=== PATIENT | female | born 1980 | race Caucasian/White ===

== ENCOUNTER 2016-10-09 09:20 | Day surgery (SDC) | payer BC ==
[~2016-10-09 09:20] MED LIST: Lactated Ringers 1,000 ML IV SCH; Lidocaine 2% 5 ML SDV ONE; Midazolam 1 MG/ML 2 ML SDV ONE; Propofol 200 MG/20 ML SDV ONE; Rocuronium 10 MG/ML 10 ML Syringe ONE; Succinylcholine/Normal Saline 200 MG/10 ML Syringe ONE; ceFAZolin 2 GM in Premix Bag 1 BAG IV ONE; fentaNYL 100 MCG/2 ML SDV ONE
--- NOTE | 2016-10-09 09:57 | PCM.PREANE ---
Preanesthetic Assessment - Anesthesia/Transfusion/Family Hx Anesthesia History: Prior Anesthesia Without Reaction Family History of Anesthesia Reaction: No Transfusion History: No Prior Transfusion(s) - Review of Systems General: No Symptoms Pulmonary: No Symptoms Cardiovascular: No Symptoms Gastrointestinal: Abdominal pain Neurological: No Symptoms Other: Reports: None - Physical Assessment O2 Sat by Pulse Oximetry: 100 Vital Signs: Last Vital Signs Temp 36.6 C 10/09/16 09:38 Pulse 84 10/09/16 09:38 Resp BP 127/85 10/09/16 09:38 Pulse Ox 100 10/09/16 09:38 Height: 1.68 m Weight: 84.368 kg ASA Class: 2 Mental Status: Alert & Oriented x3 Airway Class: Mallampati = 3 Dentition: Reports: Normal Dentition Thyro-Mental Finger Breadths: 2 Mouth Opening Finger Breadths: 2 ROM/Head Extension: Full Lungs: Clear to auscultation, Normal respiratory effort Cardiovascular: Regular Rate, Regular Rhythm, No Murmurs - Lab Values: Laboratory Last Values WBC 6.59 K/uL (4.0-11.0) 10/09/16 09:35 RBC 4.85 M/uL (4.30-5.90) 10/09/16 09:35 Hgb 15.3 g/dL (12.0-16.0) 10/09/16 09:35 Hct 46.5 % (36.0-46.0) H 10/09/16 09:35 MCV 95.9 fL (80.0-98.0) 10/09/16 09:35 MCH 31.5 pg (27.0-32.0) 10/09/16 09:35 MCHC 32.9 g/dL (31.0-37.0) 10/09/16 09:35 RDW Std Deviation 44.2 fl (28.0-62.0) 10/09/16 09:35 RDW Coeff of Jacobo 13 % (11.0-15.0) 10/09/16 09:35 Plt Count 234 K/uL (150-400) 10/09/16 09:35 MPV 10.70 fL (7.40-12.00) 10/09/16 09:35 Nucleated RBC % 0.0 /100WBC 10/09/16 09:35 Nucleated RBCs # 0 K/uL 10/09/16 09:35 - Allergies Allergies/Adverse Reactions: Allergies Allergy/AdvReac Type Severity Reaction Status Date / Time adhesive tape Allergy Rash Verified 09/15/16 12:05 - Blood Blood Available: No - Anesthesia Plan Pre-Op Medication Ordered: None - Acknowledgements Anesthesia Type Planned: General Anesthesia Pt an Appropriate Candidate for the Planned Anesthesia: Yes Alternatives and Risks of Anesthesia Discussed w Pt/Guardian: Yes Pt/Guardian Understands and Agrees with Anesthesia Plan: Yes PreAnesthesia Questionnaire Other HEENT History: wears glasses/contacts Cardiovascular History: Reports: None Respiratory History: Reports: Sleep apnea Other Respiratory History: was diagnosed prior to weight loss, states no issues now Gastrointestinal History: Reports: None Genitourinary History: Reports: None ON AWAKE COUNSELOR History: Reports: Other (see below) Other OB/BYN History: hx of ovarian cysts Musculoskeletal History: Reports: None Neurological History: Reports: None Psychiatric History: Reports: Anxiety, Depression Endocrine/Metabolic History: Reports: Obesity/BMI 30+ Hematologic History: Reports: None Immunologic History: Reports: None Oncologic (Cancer) History: Reports: None Dermatologic History: Reports: None - Past Surgical History Head Surgeries/Procedures: Reports: None HEENT Surgical History: Reports: Adenoidectomy, Oral surgery, Tonsillectomy Cardiovascular Surgical History: Reports: None Respiratory Surgical History: Reports: None GI Surgical History: Reports: Bariatric procedure Female Surgical History: Reports: Breast biopsy, Other (see below) Other Female Surgeries/Procedures: Laparoscopy for ovarian cyst 15 years ago and cervical bx Endocrine Surgical History: Reports: None Neurological Surgical History: Reports: None Musculoskeletal Surgical History: Reports: Arthroscopic knee Oncologic Surgical History: Reports: Biopsy of breast (needle loc) - SUBSTANCE USE Smoking Status *Q: Former Smoker (quit 13 years ago) Tobacco Use Within Last Twelve Months: No Recreational Drug Use History: No - HOME MEDS Home Medications: Home Meds Cyanocobalamin (Vitamin B-12) [Vitamin B-12] 1,000 mcg IM ASDIRECTED 09/15/16 [ History] DULoxetine [Cymbalta] 60 mg PO DAILY 09/15/16 [History] Norgestimate-Ethinyl Estradiol [Previfem Tablet] 1 tab PO DAILY 09/15/16 [ History] Zolpidem [Ambien] 5 mg PO BEDTIME 09/15/16 [History] - CURRENT (IN HOUSE) MEDS Current Meds: Current Medications Lactated Ringer's (Ringers, Lactated) 1,000 mls @ 125 mls/hr IV ASDIRECTED LAINE Last Admin: 10/09/16 09:40 Dose: 125 mls/hr Discontinued Medications Fentanyl (Sublimaze) Confirm Administered Dose 100 mcg .ROUTE .STK-MED ONE Stop: 10/09/16 08:08 Lidocaine (Xylocaine-Mpf 2%) Confirm Administered Dose 5 ml .ROUTE .STK-MED ONE Stop: 10/09/16 08:07 Midazolam HCl (Versed 1 Mg/Ml) Confirm Administered Dose 2 mg .ROUTE .STK-MED ONE Stop: 10/09/16 08:08 Propofol (Diprivan 20 Ml) Confirm Administered Dose 200 mg .ROUTE .STK-MED ONE Stop: 10/09/16 08:08 Rocuronium Warner (Zemuron) Confirm Administered Dose 100 mg .ROUTE .STK-MED ONE Stop: 10/09/16 08:07 Succinylcholine Chloride (Succinylcholine In Ns Pf) Confirm Administered Dose 200 mg .ROUTE .STK-MED ONE Stop: 10/09/16 08:07
[2016-10-09] MEDS ORDERED: Bupivacaine 0.25% 10 ML SDV ONE (10:59)
[2016-10-09] MEDS ORDERED: Neostigmine Methylsulfate 1 MG/ML 5 ML Syringe ONE (11:40)
[2016-10-09] MEDS ORDERED: Ketorolac 30 MG/ML SDV ONE (11:40)
[2016-10-09] MEDS ORDERED: Ondansetron 4 MG/2 ML SDV ONE (11:40)
[2016-10-09] MEDS ORDERED: HYDROmorphone 2 MG/ML Syringe IVPUSH PRN (11:43)
--- NOTE | 2016-10-09 11:58 | PCM.OPNOTE ---
- General Post-Op/Procedure Note Date of Surgery/Procedure: 10/09/16 Operative Procedure(s): laparoscopic left salpingectomy Pre Op Diagnosis: recent ectopic , left lower quadrant pain, hematosalpinx Post-Op Diagnosis: Same Anesthesia Technique: General ET tube Primary Surgeon: Rita Hassan Anesthesia Provider: Hillary Zavala Pathology: left fallopian tube Fluid Replacement, Intraop: 1,100 EBL in mLs: 10 Complications: None Known Condition: Good
[2016-10-09] MEDS: fentaNYL 100 MCG/2 ML SDV IVPUSH PRN ×2 (12:07→12:13)
[2016-10-09 14:28] VITALS: BP 107/70
--- NOTE | 2016-10-09 14:33 | OR ---
SURGEON: Rita Hassan M.D. DATE OF PROCEDURE: 10/09/2016 PREOPERATIVE DIAGNOSES: Left lower quadrant pain, hematosalpinx. POSTOPERATIVE DIAGNOSES: Left lower quadrant pain, hematosalpinx. PROCEDURE: Laparoscopic left salpingectomy. ANESTHESIA: General endotracheal. FLUIDS: 1100 mL crystalloid. ESTIMATED BLOOD LOSS: 10 mL. FINDINGS: The uterus is anteverted, sounds to 7 cm. On laparoscopic evaluation, the uterus, right tube and ovary appeared normal. The left ovary appears normal. The left tube is markedly dilated in the mid segment extending approximately 3 cm in length and 1.5 cm to 2 cm in width. The liver and gallbladder appeared normal. COMPLICATIONS: None known. DISPOSITION: Stable to recovery. BRIEF HISTORY: This is a 35-year-old female, who was monitored for a resolving ectopic . When she presented, she was unaware of the . Her hCG continued to follow appropriately with a known finding of a hematosalpinx on the left side. Her hCG progressed to being negative, however, her pain persisted as did the hematosalpinx and now after monitoring for several months with persistence of the pain and the hematosalpinx, she desires to proceed with a laparoscopic left salpingectomy and surgery is indicated for left lower quadrant pain. Risks were reviewed including bleeding, infection, injury to bowel, bladder, blood vessels, or other organs, risk of thromboembolic event, risk of anesthesia. Understanding all these risks, she does desire to proceed. DESCRIPTION OF PROCEDURE: With the patient in the dorsal lithotomy position, under adequate general endotracheal anesthesia, the speculum was placed in the vagina after a bimanual examination revealed an anteverted 8-week size uterus. Allis clamp was utilized to grasp the anterior cervix and the cervix accepted the ZUMI uterine manipulator. The balloon was inflated with air. The speculum was removed. Lab Nurse's gloves were changed. Attention was turned abdominally where 2 mL of 0.25% Marcaine were injected inferior to the umbilicus. A vertical 5 mm incision was made with a scalpel. The anterior abdominal wall was elevated. Veress needle was inserted. Opening pressure was 4 mmHg. CO2 was insufflated to develop an adequate pneumoperitoneum of 13 mmHg. The 5 mm port was then placed in the inferior umbilical position. Laparoscope was placed into the abdominal cavity. There was no evidence of any trauma beneath the port placement site. The uterus was elevated. The patient was placed in Trendelenburg position. Bilateral tubes and ovaries were inspected with normal right adnexa, however, with the obvious large dilatation on the left tube, there were no adhesions. No evidence of endometriosis and no other abnormal findings on laparoscopic evaluation of the pelvis two additional ports were then placed under direct visualization on the right lower quadrant 2 cm medial and cephalad from the anterior superior iliac spine. After placing Marcaine, a 5 mm incision was made and a 5 mm laparoscope port was placed. This was repeated on the left side with a 10, 12 port being placed. This being completed, the tube was grasped with the fimbria. The mesial salpinx was incised using the Harmonic Scalpel starting distally and proceeding proximally to the cornea where it was transected. An EndoCatch bag was placed through the 10, 12 port and the tube was placed in the bag. The tube was removed. The abdomen was desufflated to 4 mmHg. There was no evidence of any bleeding. Therefore, the abdomen was completely desufflated. The ports were removed. The left lower quadrant port site was closed using a deep [id number] suture in the fascia of 0 Polysorb followed by subcuticular suture of 3-0 Caprosyn for the skin on all three incisions. The ZUMI uterine manipulator was removed from the cervix. Final sponge, needle, and instrument counts were reported as correct. There were no known complications. The patient was transferred to recovery in good condition. ANH ZUNIGA /[id number]
== END 2016-10-09 14:15 | disposition home or self-care (01) ==
LOC: MW.SDS 09:20
PROVIDERS: ATTEND Obstetrics & Gynecology
PROC: 10T24ZZ Resection of Products of Conception, Ectopic, Percutaneous Endoscopic Approach (ICD-10-PCS; principal; 2016-10-09)
PROC: 0UT64ZZ Resection of Left Fallopian Tube, Percutaneous Endoscopic Approach (ICD-10-PCS; 2016-10-09)
DX: O00.10 Tubal pregnancy without intrauterine pregnancy (principal); F32.9 Major depressive disorder, single episode, unspecified; F41.9 Anxiety disorder, unspecified; G47.30 Sleep apnea, unspecified; E66.9 Obesity, unspecified; Z87.891 Personal history of nicotine dependence; Z90.89 Acquired absence of other organs; Z98.890 Other specified postprocedural states; Z79.899 Other long term (current) drug therapy; Z91.048 Other nonmedicinal substance allergy status; Z68.30 Body mass index [BMI] 30.0-30.9, adult
CPT/HCPCS: 36415; 59151; 84703; 85027; J0690; J1885; J2250; J2405; J3010; J7120; 00840; 88305; J2704

== ENCOUNTER 2025-04-10 14:51 | Emergency (ER) | payer BC ==
[2025-04-10 15:18] LABS: APPEARANCE,URINE CLEAR; GLUCOSE,URINE 250 mg/dL (NEGATIVE); OCCULT BLOOD,URINE NEGATIVE (NEGATIVE)
[2025-04-10 16:21] LABS: BASOPHILS ABSOLUTE AUTO 0.04 K/uL (0.00-0.20); BASOPHILS PERCENT AUTO 0.6 % (0.0-1.0); EOSINOPHILS ABSOLUTE AUTO 0.12 K/uL (0.00-0.45); EOSINOPHILS PERCENT AUTO 1.8 % (0.0-6.0); IMMATURE GRAN ABSOLUTE AUTO 0.01 K/uL (0.00-0.05); IMMATURE GRAN PERCENT AUTO 0.1 % (0.0-0.4); LYMPHOCYTES ABSOLUTE AUTO 1.24 K/uL (1.00-4.80); LYMPHOCYTES PERCENT AUTO 18.5 % (24.0-44.0); MEAN PLATELET VOLUME 9.2 fL (9.4-12.3); MONOCYTES ABSOLUTE AUTO 0.68 K/uL (0.00-0.80); MONOCYTES PERCENT AUTO 10.1 % (0.0-8.0); NEUTROPHILS ABSOLUTE AUTO 4.63 K/uL (1.80-7.70); NEUTROPHILS PERCENT AUTO 68.9 % (41.0-71.0); NRBC ABSOLUTE 0.00 K/uL (0.00-0.02); NRBC PERCENT 0.0 /100WBC (0.0-0.2); PLATELET COUNT,PLT 230 K/uL (150-400); RED BLOOD CELL COUNT 4.74 M/uL (4.10-5.30); WHITE BLOOD CELL COUNT,WBC 6.72 K/uL (3.9-11.3)
[2025-04-10 17:19] LABS: A/G RATIO 0.9 (0.9-1.6); ALANINE AMINOTRANSFERASE,ALT 12.0 IU/L (14-63); ASPARTATE AMNIOTRANSFERASE,AST 17.0 IU/L (15-37); BILIRUBIN TOTAL 0.4 mg/dL (0.2-1.0); BLOOD UREA NITROGEN,BUN 8.0 mg/dL (7.0-18.0); CARBON DIOXIDE,CO2 27.9 mmol/L (21.0-32.0); CHLORIDE,CL 101.0 mmol/L (98-107); CREATININE 0.7 mg/dL (0.6-1.0); EST CRCL DRUG DOSING (CG) 100.77 mL/min; GLUCOSE RANDOM 98.0 mg/dL (74-106); POTASSIUM,K 3.7 mmol/L (3.5-5.1); PROTEIN TOTAL,TP 6.7 g/dL (6.4-8.2); SODIUM,NA 138.0 mmol/L (136-145)
[2025-04-10 17:21] LABS: ESTIMATED GFR 110.0 mL/min (>60); HCG QUANTITATIVE 16179.0 mIU/mL
[2025-04-10 20:21] VITALS: BP 136/64; PULSE 91
== END 2025-04-10 20:20 | disposition home or self-care (01) ==
LOC: MW.ED 14:51
DX: O20.0 Threatened abortion (principal); Z91.048 Other nonmedicinal substance allergy status; Z79.899 Other long term (current) drug therapy; Z3A.01 Less than 8 weeks gestation of pregnancy
CPT/HCPCS: 36415; 76801; 80053; 81003; 84702; 85025; 87086; 99284; A9270; 99283

== ENCOUNTER 2025-04-12 16:27 | Emergency (ER) | payer BC ==
[2025-04-12 18:18] VITALS: BP 113/63; PULSE 98
== END 2025-04-12 18:16 | disposition home or self-care (01) ==
LOC: MW.ED 16:27
DX: O20.0 Threatened abortion (principal); Z98.84 Bariatric surgery status; Z91.048 Other nonmedicinal substance allergy status; Z79.899 Other long term (current) drug therapy; Z3A.00 Weeks of gestation of pregnancy not specified
CPT/HCPCS: 36415; 84702; 99284; A9270; 99283